=== PATIENT | male | born 1980 | race Caucasian/White ===

== ENCOUNTER 2016-09-17 14:06 | Emergency (ER) | payer OTHER ==
[2016-09-17] MEDS ORDERED: Rabies Immune Globulin 10 ML* 150 UNIT/ML VIAL ONE (14:14)
--- NOTE | 2016-09-17 14:45 | UC ---
General HPI - History of Current Complaint Stated Complaint: RABIES EXPOSURE Time Seen by Provider: 09/17/16 14:21 Hx Obtained From: Patient - live bat found hanging on window blind with blood on it yesterday. Patient removed bat from house using a container, states it flew away. He sustained no bite - Allergy/Home Medications Allergies/Adverse Reactions: Allergies Allergy/AdvReac Type Severity Reaction Status Date / Time Penicillins [PCN] Allergy Severe Anaphylatic Verified 09/17/16 14:49 Shock Home Medications: Home Medications Modafinil [Provigil] 1 tab PO DAILY 09/17/16 [History Confirmed 09/17/16] PMH/Surg Hx/FS Hx/Imm Hx Previously Healthy: Yes Respiratory History: Other - sleep apnea Other Respiratory History: sleep apnea - Surgical History Surgical History: None - Family History Known Family History: Positive: None - Social History Occupation: Employed Full-time - self employed Lives: With Family Alcohol Use: None Substance Use Type: None Smoking Status (MU): Former Smoker Type: eCigarettes Review of Systems Constitutional: Negative Psychological: Negative All Other Systems Reviewed And Are Negative: Yes Physical Exam Triage Information Reviewed: Yes Appearance: Well-Appearing, No Pain Distress, Obese Vital Signs Reviewed: Yes Respiratory Exam: Normal Cardiovascular Exam: Normal Psychological Exam: Normal Skin Exam: Normal - no bite/scratch nicholson Course/Dx - Differential Dx - Multi-Symptom Differential Diagnoses: Other - bat exposure poss rabies exposure Provider Diagnoses: possible exposure to rabies Discharge - Discharge Plan Condition: Good Disposition: HOME Patient Education Materials: Rabies Vaccine (By injection), Rabies Immune Globulin (By injection), Diphtheria/Acellular Pertussis/Tetanus Vaccine (By injection) Referrals: Baldemar Ballard MD [Primary Care Provider] - Additional Instructions: follow-up with Health department as directed
[2016-09-17 14:58] VITALS: BP 121/79
[2016-09-17] MEDS ORDERED: Rabies Immune Globulin 10 ML* 150 UNIT/ML VIAL IM ONE (15:24)
[2016-09-17] MEDS ORDERED: Rabies Vaccine, PCEC INJ* 1 ml IM ONE (15:24)
[2016-09-17] MEDS ORDERED: Rabies Immune Globulin 2 ML* 150 UNITS/ML VIAL IM ONE (15:24)
[2016-09-17] MEDS ORDERED: Tetan/Diph/Pertus SYR(Tdap)* 0.5 ML SYR(BOOSTRIX) use SYR IM ONE (16:17)
== END 2016-09-17 16:43 | disposition home or self-care (01) ==
LOC: UCEAST 14:06
DX: Z20.3 Contact with and (suspected) exposure to rabies (principal); Z29.14 Encounter for prophylactic rabies immune globulin; Z87.891 Personal history of nicotine dependence; G47.30 Sleep apnea, unspecified
CPT/HCPCS: 90375; 90471; 90472; 90675; 90715; 96372; 99201; G0463

== ENCOUNTER 2017-09-11 12:10 | Emergency (ER) | payer OTHER ==
[2017-09-11 12:25] VITALS: BP 137/97
--- NOTE | 2017-09-11 13:02 | UC ---
Lower Extremity/Ankle HPI - HPI Summary HPI Summary: Stubbed right great toe 4 days ago. Has been "RICE" but pain and swelling is getting worse - History of Current Complaint Chief Complaint: UCLowerExtremity Stated Complaint: R BIG TOE INJURY Time Seen by Provider: 09/11/17 12:23 Hx Obtained From: Patient Onset/Duration: Sudden Onset, Lasting Days - 4, Still Present Pain Intensity: 9 Pain Scale Used: 0-10 Numeric Aggravating Factor(s): Standing, Ambulation Alleviating Factor(s): Other - not much relief with "RICE" some relief with NAproxen Able to Bear Weight: Yes - Allergies/Home Medications Allergies/Adverse Reactions: Allergies Allergy/AdvReac Type Severity Reaction Status Date / Time Penicillins Allergy Rash Verified 09/11/17 12:26 Home Medications: Home Medications Atomoxetine HCl [Strattera] 25 mg PO DAILY 09/11/17 [History Confirmed 09/11/17] PMH/Surg Hx/FS Hx/Imm Hx Psychological History: Anxiety - socail anxiety, adhd - Surgical History Surgical History: None - Family History Known Family History: Positive: None - Social History Occupation: Works From/At Home Lives: With Family Alcohol Use: None Substance Use Type: None Smoking Status (MU): Former Smoker Type: eCigarettes - Immunization History Most Recent Tetanus Shot: UNKNOWN Review of Systems Constitutional: Negative Skin: Negative Eyes: Negative ENT: Negative Respiratory: Negative Cardiovascular: Negative Gastrointestinal: Negative Genitourinary: Negative Motor: Negative Neurovascular: Negative Musculoskeletal: Arthralgia - right great toe, Edema - right great toe Neurological: Negative Psychological: Negative Is Patient Immunocompromised?: No All Other Systems Reviewed And Are Negative: Yes Physical Exam Triage Information Reviewed: Yes Appearance: Well-Appearing, Pain Distress - mild, Obese Vital Signs: Initial Vital Signs Temp 98 F 09/11/17 12:22 Pulse 86 09/11/17 12:22 Resp 16 09/11/17 12:22 BP 137/97 09/11/17 12:22 Pulse Ox 100 09/11/17 12:22 Vital Signs Reviewed: Yes Eye Exam: Normal Eyes: Positive: Conjunctiva Clear ENT Exam: Normal ENT: Positive: Normal ENT inspection, Hearing grossly normal. Negative: Trismus , Muffled voice, Hoarse voice Dental Exam: Normal Neck exam: Normal Neck: Positive: Supple, Nontender Respiratory Exam: Normal Respiratory: Positive: Chest non-tender, No respiratory distress, No accessory muscle use Cardiovascular Exam: Normal Cardiovascular: Positive: RRR, Pulses Normal, Brisk Capillary Refill Musculoskeletal Exam: Other Musculoskeletal: Positive: Strength Intact, ROM Limited @ - right great toe, Edema @ - right great toe Neurological Exam: Normal Neurological: Positive: Alert, Muscle Tone Normal Psychological Exam: Normal Psychological: Positive: Normal Response To Family Skin Exam: Normal Diagnostics - Radiology No standard instances Xray Interpretation: No Acute Changes Radiology Interpretation Completed By: ED Physician, Radiologist - Patient Name : ZAC MUELLER Medical Record#: [id number] Ordering Physician: Ele Ribera NP Acct.#: [id number] : 1980 Age: 37 Sex: M Location: [facility] Exam Date: 09/11/17 1223 ADM Status: REG ER Order Information: TOE RIGHT GREAT Accession Number: [id number] CPT: 20491 Indication: Right great toe injury. 3 views of the right great toe demonstrates no fracture. There is a bipartite medial sesamoid noted. IMPRESSION: No fracture is noted. <Electronically signed by Bethany Vicente MD in OV> 09/11/17 1307 Dictated By: Bethany Vicente MD Dictated Date/Time: 1307 Transcribed Date/Time: 09/11/17 1301 Copy to: CC:Ele Ribera NP; Elizabeth Bustos MD; Baldmear Ballard MD [facility] [place] [facility] [address] [place] [address] ph ([phone]) ph ([phone]) ph ([phone]) This report is only to be considered final once signed by the Provider(s) as displayed in the "<Electronically Signed by >" field (s). Absence of a signature indicates the report is in a draft status and still needs to be finalized. In the event this document was created by someone other than the signing Provider, the individual initiating the document will be listed in the "Entered by:" or "Dictated by:" aguilar. 1 of 1 Lower Extremity Course/Dx - Course Course Of Treatment: post op shoe, RICE, nsaids, pain med follow with podiatry prn - Differential Dx/Diagnosis Provider Diagnoses: right great toe contusion Discharge - Sign-Out/Discharge Documenting (check all that apply): Patient Departure - Discharge Plan Condition: Stable Disposition: HOME Prescriptions: Hydrocodone/Acetaminophen [Hydrocodone-Acetamin 5-325 mg] 1 each PO QID PRN #10 tablet MDD 4 PRN Reason: pain Patient Education Materials: Foot Contusion (ED), R.I.C.E. Treatment (ED) Referrals: Elder Salas DPM [Doctor of Podiatric Medicine] - If Needed Rosalba Christian DPM [Doctor of Podiatric Medicine] - If Needed Tal Marina DPM [Doctor of Podiatric Medicine] - If Needed - Billing Disposition and Condition Condition: STABLE Disposition: Home Attestation Statement User Type: Provider - I was available for consult. This patient was seen by the LISA. The patient was not presented to, seen by, or examined by me. -Adrian
--- NOTE | 2017-09-11 13:11 | RAD ---
Indication: Right great toe injury. 3 views of the right great toe demonstrates no fracture. There is a bipartite medial sesamoid noted. IMPRESSION: No fracture is noted.
== END 2017-09-11 13:46 | disposition home or self-care (01) ==
LOC: UCEAST 12:10
DX: S90.111A Contusion of right great toe without damage to nail, initial encounter (principal); Z88.0 Allergy status to penicillin; Z87.891 Personal history of nicotine dependence; X58.XXXA Exposure to other specified factors, initial encounter; Y92.9 Unspecified place or not applicable
CPT/HCPCS: 99213; G0463

== ENCOUNTER 2017-09-18 12:00 | Emergency (ER) | payer OTHER ==
[2017-09-18] MEDS ORDERED: Ketorolac INJ* 30 MG/ML 1 ML VIAL IV PUSH ONE (13:09)
[2017-09-18] MEDS ORDERED: NS 0.9% 1000 ML* 1,000 ML IV ONE (13:09)
[2017-09-18 13:43] LABS: ABS Basophils 0.1 10^3/ul (0-0.2); ABS Eosinophils 0.1 10^3/ul (0-0.6); ABS Lymphocytes 2.8 10^3/ul (1.0-4.8); ABS Monocytes 1.1 10^3/ul (0-0.8); ABS Nucleated RBC 0 10^3/ul; Eosinophil % 1.3 % (0-6); Hematocrit 44 % (42-52); Hemoglobin 15.3 g/dl (14.0-18.0); Lymphocyte % 25.5 % (25-47); Mean Corpuscular HGB Conc 35 g/dl (31-36); Mean Corpuscular Hemoglobin 30 pg (27-31); Mean Corpuscular Volume 85 fL (80-94); Mean Platelet Volume 8.3 um3 (7.4-10.4); Nucleated Red Blood Cells % 0.1; Platelet Count 302 10^3/ul (150-450); Red Blood Count 5.14 10^6/ul (4.00-5.40); Red Cell Distribution Width 12 % (10.5-15); White Blood Count 11.1 10^3/ul (3.5-10.8)
--- NOTE | 2017-09-18 13:44 | RAD ---
INDICATION: Right flank pain COMPARISON: None TECHNIQUE: Noncontrast axial source images were acquired from the level hemidiaphragms to the symphysis pubis as part of CT imaging for renal stone. Lung bases: The lung bases are clear. Liver: The liver is normal in size. Noncontrast imaging shows no evidence of a hepatic mass or ductal dilatation. Gallbladder: There are no calcified gallstones. There is no evidence of wall thickening or pericholecystic fluid.. Spleen: The spleen is normal in size. The noncontrast CT appearance is normal. Pancreas: Noncontrast imaging shows no pancreatic mass or ductal dilitation. Adrenal glands: No masses are identified. Kidneys/Bladder: There is mild fullness the right renal collecting system and right ureter which is most consistent with recent passage of a stone. There is a 2 mm calculus within the bladder. There is an additional, nonobstructive 2 mm lower pole right renal calculus and a 1 to 2 mm upper pole left renal calculus. Noncontrast imaging demonstrates no evidence of adrenal mass. Adenopathy: There is no evidence of intraperitoneal or retroperitoneal adenopathy. Evaluation is limited without oral contrast. Fluid collections: There are no free or localized fluid collections. Vessels: The aorta and iliac vessels are normal in caliber. There are no significant atherosclerotic changes. The IVC appears normal Pelvic organs: The prostate and seminal vesicles appear normal GI tract: Evaluation of the bowel is limited without oral contrast. The stomach, small bowel, and lower GI tract appear grossly normal. There are no obstructive findings. The appendix is visualized and appears normal. Soft tissues: No soft tissue abnormalities of the extraperitoneal abdomen or pelvis are identified. Osseous structures: There are no acute osseous findings. There is a mild levoscoliosis of the lumbar spine. IMPRESSION: Minimal right-sided hydronephrosis and hydroureter likely secondary to the 2 mm calculus which is now within the bladder. Additional tiny nonobstructive renal calculi.
[2017-09-18 13:52] LABS: Urine Appearance Clear; Urine Blood Negative (Negative); Urine Color Yellow; Urine Ketones Negative (Negative); Urine Protein Negative (Negative); Urine Specific Gravity 1.023 (1.010-1.030); Urine Urobilinogen Negative (Negative)
[2017-09-18 14:05] LABS: EGFR Non-African American 49.3 (>60)
[2017-09-18 15:22] VITALS: BP 156/97
--- NOTE | 2017-09-20 05:58 | ED ---
Abdominal Pain/Male - HPI Summary HPI Summary: Patient is a 37-year-old male with history of kidney stones presenting to the ED with right-sided flank pain. Symptoms have been present for 2-3 days. He states he intermittently gets stones in the left in the right kidneys but has been able to pass them on his own. He has never seen a urologist for this. He has been given Flomax once with good relief of his past kidney stone. He denies any urinary obstructive symptoms, urgency, frequency or burning. Denies any hematuria. Denies any abdominal pain, nausea or vomiting. The right-sided flank pain radiates to the right lower quadrant. - History of Current Complaint Chief Complaint: EDFlankPain Stated Complaint: RT FLANK PAIN Time Seen by Provider: 09/18/17 12:59 Hx Obtained From: Patient Onset/Duration: Gradual Onset Timing: Intermittent Severity Initially: Moderate Severity Currently: None Pain Intensity: 0 Pain Scale Used: 0-10 Numeric Location: Flank Radiates: Yes Radiates to: RLQ Character: Colicy Aggravating Factor(s): Nothing Alleviating Factor(s): Nothing Associated Signs And Symptoms: Negative: Diaphoresis, Fever, Constipation, Blood in Stool, Urinary Symptoms, Diarrhea, Penile Discharge - Risk Factors Testicular Torsion: Negative Cardiac Risk Factors: Negative - Allergies/Home Medications Allergies/Adverse Reactions: Allergies Allergy/AdvReac Type Severity Reaction Status Date / Time Penicillins Allergy Rash Verified 09/18/17 13:36 PMH/Surg Hx/FS Hx/Imm Hx Previously Healthy: Yes Endocrine/Hematology History: Denies: Hx Diabetes, Hx Thyroid Disease Cardiovascular History: Denies: Hx Hypertension Respiratory History: Denies: Hx Asthma, Hx Chronic Obstructive Pulmonary Disease (COPD) GI History: Denies: Hx Ulcer - Immunization History Hx Pertussis Vaccination: No Immunizations Up to Date: Yes Infectious Disease History: No Infectious Disease History: Denies: Hx Clostridium Difficile, Hx Hepatitis, Hx Human Immunodeficiency Virus (HIV), Hx of Known/Suspected MRSA, Hx Shingles, Hx Tuberculosis, Hx Known/ Suspected VRE, Hx Known/Suspected VRSA, History Other Infectious Disease, Traveled Outside the [place] in Last 30 Days - Family History Known Family History: Positive: None - Social History Occupation: Employed Full-time Lives: With Family Alcohol Use: Rare Hx Substance Use: Yes Substance Use Type: Reports: Marijuana Substance Use Comment - Amount & Last Used: occasional use Smoking Status (MU): Former Smoker Type: Job Review of Systems Constitutional: Negative Negative: Fever, Chills, Fatigue, Skin Diaphoresis Negative: Palpitations, Chest Pain Negative: Shortness Of Breath, Cough Positive: Abdominal Pain. Negative: Vomiting, Diarrhea, Nausea Genitourinary: Negative Positive: no symptoms reported, see HPI Skin: Negative Neurological: Negative All Other Systems Reviewed And Are Negative: Yes Physical Exam Triage Information Reviewed: Yes Vital Signs On Initial Exam: Initial Vitals Temp Pulse Resp BP Pulse Ox 97 F 83 18 140/98 99 09/18/17 12:03 09/18/17 12:03 09/18/17 12:03 09/18/17 12:03 09/18/17 12:03 Vital Signs Reviewed: Yes Appearance: Positive: No Pain Distress, Well-Nourished Skin: Positive: Warm, Skin Color Reflects Adequate Perfusion Head/Face: Positive: Normal Head/Face Inspection Eyes: Positive: EOMI, LANI, Conjunctiva Clear Neck: Positive: Supple, No Lymphadenopathy Respiratory/Lung Sounds: Positive: Clear to Auscultation, Breath Sounds Present Cardiovascular: Positive: RRR, Pulses are Symmetrical in both Upper and Lower Extremities Abdomen Description: Positive: Nontender, Other: - Rt flank pain - CVA tenderness Musculoskeletal: Positive: Normal, Strength/ROM Intact Neurological: Positive: Speech Normal Psychiatric: Positive: Normal, Affect/Mood Appropriate Diagnostics - Vital Signs Vital Signs Temp Pulse Resp BP Pulse Ox 09/18/17 15:24 99 F 79 16 156/97 98 09/18/17 14:54 82 156/97 09/18/17 14:35 74 142/76 98 09/18/17 14:05 84 116/57 99 09/18/17 14:00 80 99 09/18/17 13:36 77 154/109 99 09/18/17 13:09 74 98 09/18/17 12:03 97 F 83 18 140/98 99 - Laboratory Lab Results: Lab Results 09/18/17 09/18/17 09/18/17 Range/Units 13:29 13:29 13:29 WBC 11.1 H (3.5-10.8) 10^3/ul RBC 5.14 (4.00-5.40) 10^6/ul Hgb 15.3 (14.0-18.0) g/dl Hct 44 (42-52) % MCV 85 (80-94) fL MCH 30 (27-31) pg MCHC 35 (31-36) g/dl RDW 12 (10.5-15) % Plt Count 302 (150-450) 10^3/ul MPV 8.3 (7.4-10.4) um3 Neut % (Auto) 62.9 (38-83) % Lymph % (Auto) 25.5 (25-47) % [place] % (Auto) 9.6 H (0-7) % Eos % (Auto) 1.3 (0-6) % Baso % (Auto) 0.7 (0-2) % Absolute Neuts (auto) 7.0 (1.5-7.7) 10^3/ul Absolute Lymphs (auto) 2.8 (1.0-4.8) 10^3/ul Absolute Monos (auto) 1.1 H (0-0.8) 10^3/ul Absolute Eos (auto) 0.1 (0-0.6) 10^3/ul Absolute Basos (auto) 0.1 (0-0.2) 10^3/ul Absolute Nucleated RBC 0 10^3/ul Nucleated RBC % 0.1 Sodium 137 (135-145) mmol/L Potassium 3.8 (3.5-5.0) mmol/L Chloride 101 (101-111) mmol/L Carbon Dioxide 25 (22-32) mmol/L Anion Gap 11 (2-11) mmol/L BUN 13 (6-24) mg/dL Creatinine 1.58 H (0.67-1.17) mg/dL Est GFR ( Amer) 59.7 (>60) Est GFR (Non-Af Amer) 49.3 (>60) BUN/Creatinine Ratio 8.2 (8-20) Glucose 105 H (70-100) mg/dL Lactic Acid (0.5-2.0) mmol/L Calcium 9.7 (8.6-10.3) mg/dL Total Bilirubin 0.50 (0.2-1.0) mg/dL AST 20 (13-39) U/L ALT 24 (7-52) U/L Alkaline Phosphatase 61 (34-104) U/L C-Reactive Protein 85.70 H (<8.01) mg/L Total Protein 7.8 (6.4-8.9) g/dL Albumin 4.4 (3.2-5.2) g/dL Globulin 3.4 (2-4) g/dL Albumin/Globulin Ratio 1.3 (1-3) Lipase 27 (11.0-82.0) U/L Urine Color Yellow Urine Appearance Clear Urine pH 5.0 (5-9) Ur Specific [place] 1.023 (1.010-1.030) Urine Protein Negative (Negative) Urine Ketones Negative (Negative) Urine Blood Negative (Negative) Urine Nitrate Negative (Negative) Urine Bilirubin Negative (Negative) Urine Urobilinogen Negative (Negative) Ur Leukocyte Esterase Negative (Negative) Urine Glucose Negative (Negative) 09/18/17 Range/Units 13:29 WBC (3.5-10.8) 10^3/ul RBC (4.00-5.40) 10^6/ul Hgb (14.0-18.0) g/dl Hct (42-52) % MCV (80-94) fL MCH (27-31) pg MCHC (31-36) g/dl RDW (10.5-15) % Plt Count (150-450) 10^3/ul MPV (7.4-10.4) um3 Neut % (Auto) (38-83) % Lymph % (Auto) (25-47) % [place] % (Auto) (0-7) % Eos % (Auto) (0-6) % Baso % (Auto) (0-2) % Absolute Neuts (auto) (1.5-7.7) 10^3/ul Absolute Lymphs (auto) (1.0-4.8) 10^3/ul Absolute Monos (auto) (0-0.8) 10^3/ul Absolute Eos (auto) (0-0.6) 10^3/ul Absolute Basos (auto) (0-0.2) 10^3/ul Absolute Nucleated RBC 10^3/ul Nucleated RBC % Sodium (135-145) mmol/L Potassium (3.5-5.0) mmol/L Chloride (101-111) mmol/L Carbon Dioxide (22-32) mmol/L Anion Gap (2-11) mmol/L BUN (6-24) mg/dL Creatinine (0.67-1.17) mg/dL Est GFR ( Amer) (>60) Est GFR (Non-Af Amer) (>60) BUN/Creatinine Ratio (8-20) Glucose (70-100) mg/dL Lactic Acid 1.5 (0.5-2.0) mmol/L Calcium (8.6-10.3) mg/dL Total Bilirubin (0.2-1.0) mg/dL AST (13-39) U/L ALT (7-52) U/L Alkaline Phosphatase (34-104) U/L C-Reactive Protein (<8.01) mg/L Total Protein (6.4-8.9) g/dL Albumin (3.2-5.2) g/dL Globulin (2-4) g/dL Albumin/Globulin Ratio (1-3) Lipase (11.0-82.0) U/L Urine Color Urine Appearance Urine pH (5-9) Ur Specific [place] (1.010-1.030) Urine Protein (Negative) Urine Ketones (Negative) Urine Blood (Negative) Urine Nitrate (Negative) Urine Bilirubin (Negative) Urine Urobilinogen (Negative) Ur Leukocyte Esterase (Negative) Urine Glucose (Negative) Result Diagrams: 09/18/17 13:29 09/18/17 13:29 Lab Statement: Any lab studies that have been ordered have been reviewed, and results considered in the medical decision making process. Abdominal Pain Fem Course/Dx - Course Course Of Treatment: During the course treatment, the patient's evaluated for right-sided flank pain. CT abdomen and pelvis obtained which shows minimal right-sided hydronephrosis and hydroureter likely secondary to the 2 mm calculus which is now within the bladder. He is given Toradol and 1 L normal saline with good relief. UA negative. Flomax given as prescription. He will follow up with urology. - Diagnoses Provider Diagnoses: Kidney stone on right side Discharge - Sign-Out/Discharge Documenting (check all that apply): Patient Departure - Discharge Plan Condition: Stable Disposition: HOME Prescriptions: Tamsulosin CAP* [Flomax CAP*] 0.4 mg PO BEDTIME #10 cap Patient Education Materials: Kidney Stones (ED) Referrals: Baldemar Ballard MD [Primary Care Provider] - Rafiq Joseph MD [Medical Doctor] - Additional Instructions: Please follow-up with Dr. Joseph for any worsening or changing symptoms Take Flomax at bedtime until the passage of stones - Billing Disposition and Condition Condition: STABLE Disposition: Home
== END 2017-09-18 15:24 | disposition home or self-care (01) ==
LOC: ED 12:00
DX: N20.0 Calculus of kidney (principal); Z87.442 Personal history of urinary calculi; Z87.891 Personal history of nicotine dependence; Z88.0 Allergy status to penicillin
CPT/HCPCS: 36415; 74176; 80053; 81003; 83605; 83690; 85025; 86140; 96361; 96374; 99283; J1885